=== PATIENT | female | born 1980 | race Caucasian/White ===

== ENCOUNTER 2023-08-18 19:36 | Emergency (ER) | payer BC, OTHER ==
[2023-08-18] MEDS ORDERED: Lidocaine 1% PF 2 ML SDV INJECT ONE (21:30)
[2023-08-18] MEDS ORDERED: Acetaminophen 500 MG Tab PO ONE (21:30)
[2023-08-18] MEDS ORDERED: Ibuprofen 600 MG Tab PO ONE (21:30)
[2023-08-18] MEDS ORDERED: oxyCODONE 5 MG Tab PO ONE (22:39)
[2023-08-18] MEDS ORDERED: Amoxicillin/Clavulanate K 875-125 MG Tab PO ONE (22:39)
== END 2023-08-18 22:50 | disposition home or self-care (01) ==
LOC: MW.ED 19:36
DX: S61.532A Puncture wound without foreign body of left wrist, initial encounter (principal); S61.432A Puncture wound without foreign body of left hand, initial encounter; W54.0XXA Bitten by dog, initial encounter
CPT/HCPCS: 73130; 99283; A9270; 12001; J3490